=== PATIENT | male | born 1960 | race Caucasian/White ===

== ENCOUNTER → 2019-05-23 | Outpatient (CLI) | payer OTHER, BC ==
--- NOTE | 2019-05-23 12:34 | RAD ---
Gastric Emptying Study Indication: Nausea. Loss of appetite. Weight loss. History of diabetes. Procedure: Anterior and posterior projection static images are obtained over the stomach following oral administration of 2 mCi of 99 M technetium sulfur colloid in a solid meal . Time points include an immediate baseline, and 1, 2, 3, and 4 hours post ingestion. Findings: There is progressive emptying of the stomach on sequential images. Percentage retention at... One hour is 22% (normal 34.8-91%). Two hours 0% (normal 2.7-60%). Three hours 0% (normal 0.5-28%). Four hours 0% (normal 0-10%). Impression: Rapid gastric emptying. Correlate with clinical evidence of dumping syndrome. Consensus Recommendations for Gastric Emptying Scintigraphy: A Joint Report of the [place] [employer] and the Society of Nuclear Medicine: J. Nucl. Med. Technol. September 2007 vol. 36 no. 1 44-54 Grading for severity of delayed GE based on the 4-h value: grade 1 (mild): 11?20% retention at 4 h grade 2 (moderate): 21?35% retention at 4 h grade 3 (severe): 36?50% retention at 4 h grade 4 (very severe): >50% retention at 4 h. Electronically signed by: Wei Osullivan MD (05/23/2019 12:31 PM) [id number]
== END | disposition home or self-care (01) ==
LOC: NM 07:50
PROVIDERS: ATTEND Family Medicine
DX: K31.84 Gastroparesis (principal); R63.0 Anorexia; R63.4 Abnormal weight loss
CPT/HCPCS: 78264; A9541

== ENCOUNTER → 2019-06-02 | Outpatient (CLI) | payer BC, OTHER ==
--- NOTE | 2019-06-03 17:16 | PCVCIMAG ---
APPROVED REPORT Imaging Protocol: Rest Tc-99m/Stress Tc-99m 1 day Study performed: 06/02/2019 09:29:32 Indication: Chest pain, Dyspnea Patient Location: Out-Patient Stress Nurse: Irina Diane RN, Sherley Martinez RN [facility] Tech:Catalina Lopeshbun [facility] Ht: 5 ft 11 in Wt: 250 lbs BSA: 2.32 m2 HR: 83 bpm BP: 155/77 mmHg BMI: 34.8 Rhythm: Normal Sinus Rhythm Medical History Medical History: Hyperlipidemia, Diabetic Noninsulin Medications: Statin Allergies: No known drug allergies Cardiac Risk Factors: Age Pretest Chest Pain Characteristics: No chest pain Exercise History: Physically active Resting Data Rest SPECT myocardial perfusion imaging was performed in supine position 45 minutes following the intravenous injection of 10.3 mCi of Tc-99m Sestamibi. Time of rest injection: 0850 Date: 06/02/2019 Administration Route: IV Administration Site: Right AC Exercise Stress At peak stress, the patient was injected intravenously with 32.4mCi of Tc-99m Sestamibi. Time of stress injection: 1000 Date: 06/02/2019 Administration Route: IV Administration Site: Right AC Patient continued to exercise for 1 minute(s). Gated Stress SPECT was performed 30 minutes after stress injection. The images were gated to evaluate regional wall motion and calculate left ventricular ejection fraction. Stress Test Details Stress Test: Exercise stress testing was performed using a Erasto protocol. HRMax Heart Rate (APMHR): 162 bpm Resting HR: 83 bpmTarget HR (85% APMHR): 137 bpm Max HR Achieved: 162 bpm % of APMHR: 100 Recovery HR: 105 bpm BP Resting BP: 155/77 mmHg Max BP: 216/97 mmHg Recovery BP: 176/82 mmHg ECG Resting ECG: Normal Sinus Rhythm Stress ECG: Sinus Tachycardia Arrhythmia: PVC's Recovery ECG: Sinus Tachycardia Clinical Reason for Termination: Maximal effort, Fatigue, Dyspnea Stress Symptoms: Dyspnea, Leg Fatigue Exercise duration: 8 min 01 sec Exercise capacity: 10.4 METs Symptoms resolved during recovery. Stress ECG Conclusion ECG: Non-ischemic Study Quality Study: Good Study Data Post stress, the left ventricular ejection was 62%.. SSS: 6 SRS: 2 SDS: 4 TID = 1.12. Perfusion Medium sized area of moderate reversible ischemia involving the mid/apical anterior left ventricle consistent with a left anterior descending distribution. Small sized area of moderate reversible ischemia involving the inferoapical left ventricle. Wall Motion Normal left ventricular size and function with no regional wall motion abnormalities. Nuclear Conclusion Medium sized area of moderate reversible ischemia involving the mid/apical anterior left ventricle consistent with a left anterior descending distribution. Small sized area of moderate reversible ischemia involving the inferoapical left ventricle. Normal left ventricular size and function with no regional wall motion abnormalities. Post stress, the left ventricular ejection was 62%. No prior study available for comparison. Interpreted by: Rodger Salinas MD Electronically Approved: 06/02/2019 14:40:01 <Conclusion> ECG: Non-ischemic
== END | disposition home or self-care (01) ==
LOC: PCVCIMAG 08:47
PROVIDERS: ATTEND Family Medicine
DX: R07.9 Chest pain, unspecified (principal); R06.00 Dyspnea, unspecified; E78.5 Hyperlipidemia, unspecified; E11.9 Type 2 diabetes mellitus without complications
CPT/HCPCS: 78452; 93017; A9500